=== PATIENT | male | born 1940 | race Caucasian/White ===

== ENCOUNTER 2016-08-09 12:10 | Day surgery (SDC) | payer MEDICARE ==
[~2016-08-09] VITALS: Ht 188 cm; Wt 120.7 kg
[~2016-08-09 12:10] MED LIST: AMT25T PO; ATRV10T PO; BECL8.7A6 INHALATION; DULO30CA50 PO; FINA5TAB2 PO; FLUT9.9S NS; LACT460C PO; LOSA50TA37 PO; MONT10TA23 PO; MULT-1018 PO; OXYC1TAB24 PO; PROP60CA2 PO; Sodium Biphos-Phos 133 mL Enema RECTAL PRN; Sodium Chloride LOK Flush 10 mL Syringe IV PRN; TEST200V20 IM; WARF1TAB6 PO; WARF2TAB7 PO; fentaNYL-PF 50 mCg/mL 2 mL Inj IVPUSH PRN
[2016-08-09 12:30] VITALS: BP 141/104; PULSE 82; RESP 18; O2SAT 98
[2016-08-09] MEDS: 0.9% Sodium Chloride 1,000 ML IV SCH ×3 (12:47→13:44)
[2016-08-09 13:50] VITALS: BP 116/74; PULSE 79; RESP 15; O2SAT 95
[2016-08-09 14:00] VITALS: BP 97/69; PULSE 74; RESP 15; O2SAT 93
[2016-08-09 14:10] VITALS: BP 125/90; PULSE 91; RESP 15; O2SAT 96
[2016-08-09 14:20] VITALS: BP 130/89; PULSE 76; RESP 15; O2SAT 97
--- NOTE | 2016-08-09 16:19 | ENDO ---
[address] [address] ENDOSCOPY PROCEDURE PATIENT: JEANNETTE LOPEZ : 1940 MR#: [id number] ADMIT: 08/09/2016 JOB ID: [id number] PREPROCEDURE DIAGNOSIS: Sigmoid colon thickening. POSTPROCEDURE DIAGNOSIS: Transverse colon polyps x3, descending colon polyp, left-sided diverticulosis. PROCEDURE: Colonoscopy with biopsies. ENDOSCOPIST: Juan Castanon MD MEDICATIONS: 1. Versed 6 mg. 2. Fentanyl 125. INDICATIONS: The patient previously underwent a sigmoid colon resection by Dr. Ashraf in 2007 for sigmoid diverticulitis. His last colonoscopy was in July 2013. He then presented to Urgent Care with severe left lower quadrant abdominal pain. He had a normal white blood cell count. A CT scan of the abdomen and pelvis showed a focus of eccentric wall thickening of the sigmoid colon, but no fat stranding, no free air. After a discussion of risks and benefits, he agreed to proceed with colonoscopy. FINDINGS: The sigmoid colon was grossly normal other than some left-sided diverticula. There were three separate polyps in the transverse colon and one polyp from the descending colon, all removed with cold forceps and sent for permanent pathology. DESCRIPTION OF PROCEDURE: Procedural sedation was achieved. The patient was connected to hemodynamic monitoring, pulse oximetry, capnography. After digital rectal exam, the PCF H 180 AL colonoscope was introduced and passed under visualization until the appendiceal orifice and ileocecal valve were visualized and photo documented. The scope was then withdrawn and carefully retroflexed in the rectum. In the transverse colon, there was a small grouping of three separate rounded polyps measuring approximately 2-3 mm in diameter, which were each removed separately with cold forceps and sent for permanent pathology. In the descending colon there was a separate rounded polyp, again measuring 2-3 mm, which was removed with cold forceps and sent for permanent pathology. There were some scattered left-sided diverticula. His colon anastomosis was widely patent. There were no other mucosal abnormalities in the descending or sigmoid colon. Retroflexion was normal. The scope was withdrawn and the procedure terminated. He tolerated the procedure well. RECOMMENDATIONS: We will mail him with biopsy results. Depending on findings, either recommend repeat colonoscopy in three or five years.
--- NOTE | 2016-08-10 17:30 | PATH ---
SURGICAL PATHOLOGY Attending Physician:Alejandra Scott CASE STATUS: Signed Out PATIENT NAME: JEANNETTE LOPEZ PID: [id number] : 1940 DATE COLLECTED:08/09/2016 22:03 SPECIMEN: 1: Colon, Biopsy 2: Colon, Biopsy CLINICAL HISTORY: 1. TRANSVERSE COLON POLYPS X3 2. DESCENDING COLON POLYP FINAL DIAGNOSIS: 1. Transverse Colon Polyps x3: Tubular adenomas. 2. Descending Colon Polyp: Tubular adenoma. ICD10 D12.3 D12.4 GROSS DESCRIPTION: The specimen is received in two formalin filled containers labeled with the patient's name. 1). The specimen is sublabeled "transverse colon polyps" and consists of 4 portions of tissue which aggregate to 0.4 x 0.4 x 0.3 CM. The specimen is entirely submitted in cassette 1A. 2). The specimen is sublabeled "descending colon polyp" and consists of a 0.4 x 0.3 x 0.3 CM portion of tissue which is entirely submitted in cassette 2A. 08/09/2016 DAC MICRO DESCRIPTION: Please see diagnosis. ICD-9 CODES: CPT CODES: 1: 16406 2: 71944 Electronically Signed Out Shruthi Armenta MD [facility] Pathology [facility], [place] [address] Technical component performed at [facility], [address] [place] [address] Ave[address], [place], [address]
== END 2016-08-09 23:59 | disposition home or self-care (01) ==
LOC: END 12:10
PROVIDERS: ATTEND Student in an Organized Health Care Education/Training Program
DX: D12.3 Benign neoplasm of transverse colon (principal); D12.4 Benign neoplasm of descending colon; K57.30 Diverticulosis of large intestine without perforation or abscess without bleeding; I10 Essential (primary) hypertension; I48.91 Unspecified atrial fibrillation; I25.10 Atherosclerotic heart disease of native coronary artery without angina pectoris; F41.8 Other specified anxiety disorders; E78.5 Hyperlipidemia, unspecified; G47.30 Sleep apnea, unspecified; K21.9 Gastro-esophageal reflux disease without esophagitis; G25.0 Essential tremor; E66.9 Obesity, unspecified; Z95.1 Presence of aortocoronary bypass graft; Z79.01 Long term (current) use of anticoagulants
CPT/HCPCS: 45380; 99153; G0500; J2250; J7030

== ENCOUNTER 2016-10-22 20:18 | Emergency (ER) | payer MEDICARE ==
[~2016-10-22] VITALS: Ht 188 cm; Wt 121.8 kg
[~2016-10-22 20:18] MED LIST changes: -Sodium Biphos-Phos 133 mL Enema RECTAL PRN; -Sodium Chloride LOK Flush 10 mL Syringe IV PRN; -fentaNYL-PF 50 mCg/mL 2 mL Inj IVPUSH PRN
[2016-10-22 20:26] VITALS: BP 127/78; PULSE 69; RESP 14; O2SAT 97
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
[2016-10-22] MEDS ORDERED: Td Adult-Tetanus/Diph Tox Abs 0.5 mL Inj IM ONE (21:05)
[2016-10-22] MEDS ORDERED: TdaP Vaccine 0.5 mL Inj IM ONE ×2 (21:28→21:40)
[2016-10-22 21:37] LABS: INR 1.74 ratio
[2016-10-22 22:15] VITALS: BP 122/81; PULSE 65; RESP 14; O2SAT 99
--- NOTE | 2016-10-23 06:02 | DRSVH ---
PROCEDURE: CT BRAIN WITHOUT CONTRAST ([id number]) INDICATIONS: fall on warfarin TECHNIQUE: Noncontrast 4.5 mm thick angled axial sections acquired from the foramen magnum to the vertex, with c oronal reformats. COMPARISON: [facility], CT, BRAIN W/O CONTRAST, 08/18/2013, 17:19. FINDINGS: Image quality: Excellent. CSF spaces: Basal cisterns are patent. No extra-axial fluid collections. The ventricles are symmet chip in size and shape. Brain: No intracranial bleeds or masses. There is cerebral volume loss for age, with resultant vent ricular and sulcal prominence. There are periventricular and deep white matter chronic small vessel ischemic changes. There is intracranial internal carotid artery atherosclerosis. Skull and face: Calvarium and visualized facial bones appear intact, without suspicious lesions. Sinuses: Postsurgical changes in the paranasal sinuses. There is mild bilateral maxillary sinus becau se of thickening. IMPRESSION: No acute intracranial process. Mild bilateral maxillary sinus mucosal thickening. Dictated by: Albino Peñaloza M.D. on 10/22/2016 at 21:15 Approved by: Albino Peñaloza M.D. on 10/22/2016 at 21:16
== END 2016-10-22 22:16 | disposition home or self-care (01) ==
LOC: SED 20:18
DX: S61.213A Laceration without foreign body of left middle finger without damage to nail, initial encounter (principal); S51.811A Laceration without foreign body of right forearm, initial encounter; W01.0XXA Fall on same level from slipping, tripping and stumbling without subsequent striking against object, initial encounter; Y93.89 Activity, other specified; Y92.008 Other place in unspecified non-institutional (private) residence as the place of occurrence of the external cause; Y99.8 Other external cause status; I48.91 Unspecified atrial fibrillation; I10 Essential (primary) hypertension; Z79.01 Long term (current) use of anticoagulants; Z88.8 Allergy status to other drugs, medicaments and biological substances